=== PATIENT | male | born 1955 | race Caucasian/White ===

== ENCOUNTER 2021-02-10 09:19 | Day surgery (SDC) | payer BC ==
[2021-02-10] MEDS ORDERED: Decadron 4 MG INJ IV ONE (09:20)
[2021-02-10] MEDS ORDERED: Xylocaine 1% Vial 30 ML PF IJ ONE (09:20)
[2021-02-10] MEDS ORDERED: BUPIVACAINE 0.5% VIAL IJ ONE (09:20)
[2021-02-10] MEDS ORDERED: Depo-Medrol 40 MG/ML IM ONE (09:20)
[2021-02-10] MEDS ORDERED: Lactated Ringers 1,000 ML IV ONE (10:45)
[2021-02-10] MEDS ORDERED: DIPRIVAN 200 MG/20 ML IV ONE (12:25)
--- NOTE | 2021-02-10 13:21 | XRAY ---
46 seconds fluoroscopy time in surgery for injections of both SI joints and the right piriformis muscle.
--- NOTE | 2021-02-10 13:23 | XRAY ---
Indication: Bilateral SI joint and right piriformis muscle injections. Intraoperative fluoroscopy provided for 46 seconds. 5 digital spot image submitted for interpretation demonstrates posterior needle tip projecting over the inferior left and right SI joint. Additional needle tip projects over the expected right piriformis muscle with small amount of contrast injected for needle tip placement. Correlate with intraoperative findings/report. Incidental partially visualized right hip arthroplasty.
== END 2021-02-10 12:58 | disposition home or self-care (01) ==
LOC: SDC-PAIN 09:19
PROVIDERS: ATTEND Psychiatry & Neurology Pain Medicine
DX: M46.1 Sacroiliitis, not elsewhere classified (principal); M79.18 Myalgia, other site; I10 Essential (primary) hypertension; F41.9 Anxiety disorder, unspecified; F32.9 Major depressive disorder, single episode, unspecified; Z79.899 Other long term (current) drug therapy
CPT/HCPCS: 20552; 27096; 72202; 77002; J1030; J1100; J2001; J2704; Q9966; G0260

== ENCOUNTER 2021-03-17 09:53 | Day surgery (SDC) | payer BC | END 2021-03-17 12:40 | disposition home or self-care (01) | LOC: SDC-PAIN 09:53 | PROVIDERS: ATTEND Psychiatry & Neurology Pain Medicine | DX: Z53.9 Procedure and treatment not carried out, unspecified reason (principal) ==

== ENCOUNTER 2021-03-31 08:33 | Day surgery (SDC) | payer BC ==
[2021-03-31] MEDS ORDERED: LIDOCAINE HCL 2% 100 MG/5 ML IJ ONE (08:34)
[2021-03-31] MEDS ORDERED: DIPRIVAN 200 MG/20 ML IV ONE (09:49)
[2021-03-31] MEDS ORDERED: Ketamine HCl 50 MG/ML ONE (09:49)
[2021-03-31] MEDS ORDERED: Lactated Ringers 1,000 ML IV ONE (10:31)
--- NOTE | 2021-03-31 11:21 | XRAY ---
Indication: Left C2-C4 MBB. Intraoperative fluoroscopy provided for 28 seconds. 2 digital spot image submitted for interpretation demonstrate posterior needle tips projecting over the expected left C2-C4 nerve roots. Correlate with intraoperative findings/report.
--- NOTE | 2021-03-31 11:23 | XRAY ---
28 seconds of fluoroscopy was used in surgery for a left C2-C4 MBB.
== END 2021-03-31 10:35 | disposition home or self-care (01) ==
LOC: SDC-PAIN 08:33
PROVIDERS: ATTEND Psychiatry & Neurology Pain Medicine
DX: M47.812 Spondylosis without myelopathy or radiculopathy, cervical region (principal); I10 Essential (primary) hypertension; Z79.899 Other long term (current) drug therapy
CPT/HCPCS: 64490; 64491; 72020; 77002; J2704

== ENCOUNTER 2021-05-12 13:32 | Day surgery (SDC) | payer BC ==
[2021-05-12] MEDS ORDERED: BUPIVACAINE 0.5% VIAL IJ ONE (13:33)
[2021-05-12] MEDS ORDERED: DIPRIVAN 200 MG/20 ML IV ONE (16:20)
[2021-05-12] MEDS ORDERED: Lactated Ringers 1,000 ML IV ONE (16:22)
--- NOTE | 2021-05-12 18:58 | XRAY ---
Indication: Left C2-C4 MBB. Intraoperative fluoroscopy provided for 40 to seconds. 4 digital spot image submitted for interpretation demonstrates posterior needle tips projecting over the expected left C2-C4 nerve roots. Correlate with intraoperative findings/report.
--- NOTE | 2021-05-12 19:00 | XRAY ---
42 seconds of fluoroscopy was used in surgery for a left C2-C4 MBB.
== END 2021-05-12 16:56 | disposition home or self-care (01) ==
LOC: SDC-PAIN 13:32
PROVIDERS: ATTEND Psychiatry & Neurology Pain Medicine
DX: M47.812 Spondylosis without myelopathy or radiculopathy, cervical region (principal); I10 Essential (primary) hypertension
CPT/HCPCS: 64490; 64491; 72040; 77002; J2704

== ENCOUNTER 2021-08-18 11:51 | Day surgery (SDC) | payer BC ==
[2021-08-18] MEDS ORDERED: LIDOCAINE HCL 2% 100 MG/5 ML IJ ONE (11:52)
[2021-08-18] MEDS ORDERED: Lactated Ringers 1,000 ML IV ONE (12:28)
[2021-08-18] MEDS ORDERED: DIPRIVAN 200 MG/20 ML IV ONE (12:32)
--- NOTE | 2021-08-18 14:02 | XRAY ---
Indication: Bilateral L4-S1 MBB. Intraoperative fluoroscopy provided for 15 seconds. Single digital spot image submitted for interpretation demonstrates posterior needle tips projecting over the expected left and right L4-S1 nerve roots. Correlate with intraoperative findings/report.
--- NOTE | 2021-08-18 15:17 | XRAY ---
15 seconds of fluoroscopy was used in surgery for a bilateral L4-S1 MBB.
== END 2021-08-18 12:55 | disposition home or self-care (01) ==
LOC: SDC-PAIN 11:51
PROVIDERS: ATTEND Psychiatry & Neurology Pain Medicine
DX: M47.816 Spondylosis without myelopathy or radiculopathy, lumbar region (principal); I10 Essential (primary) hypertension; Z79.899 Other long term (current) drug therapy
CPT/HCPCS: 64493; 64494; 72020; 77002; J2704

== ENCOUNTER 2021-09-08 08:34 | Day surgery (SDC) | payer BC ==
[2021-09-08] MEDS ORDERED: Marcaine Mpf 0.5% Vial 30 Ml IJ ONE (08:35)
[2021-09-08] MEDS ORDERED: DIPRIVAN 200 MG/20 ML IV ONE (09:44)
[2021-09-08] MEDS ORDERED: Lactated Ringers 1,000 ML IV ONE (10:23)
--- NOTE | 2021-09-08 11:34 | XRAY ---
Indication: Bilateral L4-S1 MBB. Intraoperative fluoroscopy provided for 18 seconds. Single digital spot image submitted for interpretation demonstrates posterior needle tips projecting over the expected left and right L4-S1 nerve roots. Correlate with intraoperative findings/report.
--- NOTE | 2021-09-08 12:03 | XRAY ---
18 seconds of fluoroscopy was used in surgery for a bilateral L4-S1 MBB.
== END 2021-09-08 10:10 | disposition home or self-care (01) ==
LOC: SDC-PAIN 08:34
PROVIDERS: ATTEND Psychiatry & Neurology Pain Medicine
DX: M47.816 Spondylosis without myelopathy or radiculopathy, lumbar region (principal); Z79.899 Other long term (current) drug therapy
CPT/HCPCS: 64493; 64494; 72020; 77002; J2704

== ENCOUNTER 2021-09-22 15:12 | Day surgery (SDC) | payer BC ==
[2021-09-22] MEDS ORDERED: Marcaine Mpf 0.5% Vial 30 Ml IJ ONE (15:13)
[2021-09-22] MEDS ORDERED: LIDOCAINE HCL 1% 50 MG/5 ML VL PF IJ ONE (15:13)
[2021-09-22] MEDS ORDERED: Depo-Medrol 40 MG/ML IM ONE (15:13)
[2021-09-22] MEDS ORDERED: DIPRIVAN 200 MG/20 ML IV ONE (16:33)
[2021-09-22] MEDS ORDERED: Lactated Ringers 1,000 ML IV ONE (17:19)
--- NOTE | 2021-09-22 18:15 | XRAY ---
Indication: Right L4-S1 RFA. Intraoperative fluoroscopy provided for 38 seconds. 3 digital spot image submitted for interpretation demonstrates posterior needle tips projecting over the expected right L4-S1 nerve roots. Correlate with intraoperative findings/report.
--- NOTE | 2021-09-23 12:53 | XRAY ---
38 seconds of fluoroscopy was used in surgery for a right L4-S1 RFA.
== END 2021-09-22 17:10 | disposition home or self-care (01) ==
LOC: SDC-PAIN 15:12
PROVIDERS: ATTEND Psychiatry & Neurology Pain Medicine
DX: M47.816 Spondylosis without myelopathy or radiculopathy, lumbar region (principal); Z79.899 Other long term (current) drug therapy
CPT/HCPCS: 64635; 64636; 72100; 77002; J1030; J2001; J2704

== ENCOUNTER 2021-09-29 11:43 | Day surgery (SDC) | payer BC ==
[2021-09-29] MEDS ORDERED: Marcaine Mpf 0.5% Vial 30 Ml IJ ONE (11:44)
[2021-09-29] MEDS ORDERED: XYLOCAINE-MPF 1% 5ML SDV IJ ONE (11:44)
[2021-09-29] MEDS ORDERED: Depo-Medrol 40 MG/ML IM ONE (11:44)
[2021-09-29] MEDS ORDERED: DIPRIVAN 200 MG/20 ML IV ONE (12:56)
[2021-09-29] MEDS ORDERED: Lactated Ringers 1,000 ML IV ONE (14:29)
--- NOTE | 2021-09-30 18:31 | XRAY ---
32 seconds of fluoroscopy was used in surgery for a left L4-S1 RFA.
--- NOTE | 2021-10-01 16:01 | XRAY ---
Indication: Left L4-S1 RFA. Intraoperative fluoroscopy provided for 32 seconds. 3 digital spot images submitted for interpretation demonstrates posterior needle tips projecting over the expected left L4-S1 nerve roots. Correlate with intraoperative findings/report.
== END 2021-09-29 13:23 | disposition home or self-care (01) ==
LOC: SDC-PAIN 11:43
PROVIDERS: ATTEND Psychiatry & Neurology Pain Medicine
DX: M47.816 Spondylosis without myelopathy or radiculopathy, lumbar region (principal); Z79.899 Other long term (current) drug therapy
CPT/HCPCS: 64635; 64636; 72100; 77002; J1030; J2704

== ENCOUNTER 2021-11-10 08:51 | Day surgery (SDC) | payer BC ==
[2021-11-10] MEDS ORDERED: XYLOCAINE-MPF 1% 5ML SDV IJ ONE (08:52)
[2021-11-10] MEDS ORDERED: Decadron 4 MG INJ IJ ONE (08:52)
[2021-11-10] MEDS ORDERED: Marcaine Mpf 0.5% Vial 30 Ml IJ ONE (08:52)
--- NOTE | 2021-11-10 11:27 | XRAY ---
Indication: Left C2-C5 RFA. Intraoperative fluoroscopy provided for 51 seconds. 2 digital spot image submitted for interpretation demonstrates posterior needle tips projecting over the expected left C2-C5 nerve roots. Correlate with intraoperative findings/report.
[2021-11-10] MEDS ORDERED: Lactated Ringers 1,000 ML IV ONE (12:14)
--- NOTE | 2021-11-10 14:09 | XRAY ---
51 seconds of fluoroscopy was used in surgery for a left C2-C5 RFA.
== END 2021-11-10 10:40 | disposition home or self-care (01) ==
LOC: SDC-PAIN 08:51
PROVIDERS: ATTEND Psychiatry & Neurology Pain Medicine
DX: M47.812 Spondylosis without myelopathy or radiculopathy, cervical region (principal); Z79.899 Other long term (current) drug therapy
CPT/HCPCS: 01939; 64633; 64634; 72040; 77002; J1100

== ENCOUNTER 2022-09-28 08:09 | Day surgery (SDC) | payer BC ==
[2022-09-28] MEDS ORDERED: Depo-Medrol 40 MG/ML IM ONE (08:10)
[2022-09-28] MEDS ORDERED: BUPIVACAINE 0.5% VIAL IJ ONE (08:10)
[2022-09-28] MEDS ORDERED: LIDOCAINE HCL 1% 50 MG/5 ML VL PF IJ ONE (08:10)
[2022-09-28] MEDS ORDERED: DIPRIVAN 200 MG/20 ML IV ONE ×2 (10:05→10:18)
--- NOTE | 2022-09-28 13:10 | XRAY ---
Indication: Right L4-S1 RFA Intraoperative fluoroscopy provided for 32 seconds. 3 digital spot image submitted for interpretation demonstrates posterior needle tips projecting over the expected right L4-S1 nerve roots. Correlate with intraoperative findings/report.
[2022-09-28] MEDS ORDERED: Lactated Ringers 1,000 ML IV ONE (13:33)
--- NOTE | 2022-09-28 13:56 | XRAY ---
32 seconds of fluoroscopy was used in surgery for a right L4-S1 RFA.
== END 2022-09-28 10:40 | disposition home or self-care (01) ==
LOC: SDC-PAIN 08:09
PROVIDERS: ATTEND Psychiatry & Neurology Pain Medicine
DX: M47.816 Spondylosis without myelopathy or radiculopathy, lumbar region (principal); Z79.899 Other long term (current) drug therapy
CPT/HCPCS: 64635; 64636; 72100; 77002; J1030; J2001; J2704